=== PATIENT | female | born 1965 | race Caucasian/White ===

== ENCOUNTER 2018-04-03 15:28 | Emergency (ER) | payer OTHER, BC ==
[2018-04-03 16:08] VITALS: BP 143/87; PULSE 89; TEMP 99.1; BMI 27.3
--- NOTE | 2018-04-03 16:08 | PDOC ---
Rapid Medical Evaluation Time Seen by Provider: 04/03/18 16:03 Medical Evaluation: Allergies Allergy/AdvReac Type Severity Reaction Status Date / Time No Known Allergies Allergy Verified 11/22/15 14:17 04/03/18 16:03 Pt presents to the ED with mite bites for months. Pt states she has been bitten by mites and seen by her seeing eye dog trainer for this issue. Tried permethin with no relief. States she feels the mites all over. Exam: bites to arms b/l. AAOx3 Orders: Nothing Pt to proceed to ED for further evaluation. Derm: Dr. Peter Discharge Disposition - Diagnosis Bites - Referrals - Patient Instructions - Post Discharge Activity
--- NOTE | 2018-04-03 16:23 | PDOC ---
History of Present Illness - General Chief Complaint: Lice Stated Complaint: BITE Time Seen by Provider: 04/03/18 16:03 Past History - Past Medical History Allergies/Adverse Reactions: Allergies Allergy/AdvReac Type Severity Reaction Status Date / Time No Known Allergies Allergy Verified 04/03/18 16:04 Home Medications: Ambulatory Orders Calcium Carbonate/Vitamin D3 [Calcium 500 + D Tablet] 1 each PO DAILY 11/22/15 Cholecalciferol (Vitamin D3) [Vitamin D3] 2,000 unit PO DAILY 11/22/15 Ginkgo Biloba [place] Extract [Ginkgo] 60 mg PO DAILY 11/22/15 Multivitamin with Iron [Daily Charlene with Iron] 1 each PO DAILY 11/22/15 Shana's Wort 300 mg PO DAILY 11/22/15 White Garibaldi Bark/Salicin [White Garibaldi Bark Powder] 1 gm MC DAILY 11/22/15 Ivermectin 3 mg PO DAILY #5 tablet 04/03/18 Permethrin 5% Topical Cream [Elimite -] 1 applic TP ONCE #1 tube 04/03/18 Cancer: Yes (MELANOMA RIGHT CALF,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) GI Disorders: Yes (GERD) Hypercholesterolemia: Yes - Surgical History Orthopedic Surgery: Yes - Suicide/Smoking/Psychosocial Hx Smoking History: Never smoked Have you smoked in the past 12 months: No If you are a former smoker, when did you quit?: AT AGE 28 Hx Alcohol Use: No Drug/Substance Use Hx: No Substance Use Type: None Hx Substance Use Treatment: No *Physical Exam - Vital Signs Last Vital Signs Temp Pulse Resp BP Pulse Ox 99.1 F 89 18 143/87 99 04/03/18 16:04 04/03/18 16:04 04/03/18 16:04 04/03/18 16:04 04/03/18 16:04 *DC/Admit/Observation/Transfer Diagnosis at time of Disposition: Bites - Discharge Dispostion Disposition: HOME Condition at time of disposition: Stable Decision to Admit order: No - Referrals - Patient Instructions Printed Discharge Instructions: DI for Insect Bites and Stings Additional Instructions: You were seen for your mite bites today. Please use the permethin cream and ivermectin tablets as prescribed. You need to call the department of health regarding this issue Follow up with your Hand Lacer within 24-48 hours. Return to the Ed if you develop fevers, chills, or have any changes in your symptoms - Post Discharge Activity
== END 2018-04-03 16:35 | disposition home or self-care (01) ==
LOC: JER 15:28
DX: S50.861A Insect bite (nonvenomous) of right forearm, initial encounter (principal); S50.862A Insect bite (nonvenomous) of left forearm, initial encounter; S40.862A Insect bite (nonvenomous) of left upper arm, initial encounter; S40.861A Insect bite (nonvenomous) of right upper arm, initial encounter; W57.XXXA Bitten or stung by nonvenomous insect and other nonvenomous arthropods, initial encounter; Y93.89 Activity, other specified; Y92.89 Other specified places as the place of occurrence of the external cause; Y99.8 Other external cause status
CPT/HCPCS: 99281-25